=== PATIENT | female | born 1995 | race Caucasian/White ===

== ENCOUNTER 2017-04-01 19:49 | Emergency (ER) | payer BC, MEDICAID ==
--- OUTSIDE RECORDS SUMMARY | 2017-04-01 20:14 | XMS REPORT | Clinical Summary ---
:[address] [place] [address] Care Team Providers Name Role Phone Unavailable Primary Care Provider Unavailable Source Comments This disclosure is being made pursuant to the [employer] program and maynot contain all information available regarding this patient.[address] Allergies No Known Allergies Current Medications Be aware that medications may not be up to date as of this document. Alwaysverify current medications with the patient. No known medications Active Problems No known active problems Family History Medical History Relation Name Comments Diabetes Father Diabetes Mother Relation Name Status Comments Father Mother Social History Tobacco Use Types Packs/Day Years Used Date Never Smoker Smokeless Tobacco: Never Used Alcohol Use Drinks/Week oz/Week Comments No 0 Standard drinks or equivalent 0.0 Sex Assigned at Date Recorded Not on file Last Filed Vital Signs Vital Sign Reading Time Taken Blood Pressure 111/71 08/25/2015 9:55 AM [employer] Pulse 51 08/25/2015 9:55 AM [employer] Temperature - - Respiratory Rate - - Oxygen Saturation - - Inhaled Oxygen Concentration - - Weight 62 kg (136 lb 9.6 oz) 08/25/2015 9:55 AM [employer] Height 152.4 cm (5') 08/25/2015 9:55 AM [employer] Body Mass Index 26.68 08/25/2015 9:55 AM [employer]AFF Plan of Treatment Health Maintenance Due Date Last Done Comments HPV Vaccine ([id number],M: 9-22) (1 of 3 - Female 3 Dose 02/13/2008 Series) CHLAMYDIA SCREENING 2013 Meningococcal Vaccine (1 of 1) 2013 Tetanus/Pertussis (1 - Tdap) 02/13/2016 INFLUENZA IMMUNIZATION (#1) 2017 Results Not on filefrom Last 3 Months
[2017-04-01] MEDS ORDERED: MORPHINE SULFATE 2 MG/ML DISP.SYRIN IV ONE (20:28)
--- NOTE | 2017-04-01 20:36 | ERNOTE ---
Abdominal HPI - Narrative Date of Service: 04/01/17 - General Chief Complaint: Abdominal Pain Time Seen by Provider: 04/01/17 20:04 Source: patient Exam Limitations: no limitations - Immun/Allergies/Home Medications Immunizatons: IMMUNIZATION HX Immunizations Up to Date Yes History of Influenza Vaccine Yes Hx Pneumococcal Vaccination No Allergies/Adverse Reactions: Allergies No Known Allergies Allergy (Verified 02/24/15 18:58) Home Medications: HOME MEDICATIONS NK [No Home Medication] 04/01/17 [Last Taken Unknown] - History of Present Illness Narrative: This is a 22-year-old female who has last menstrual period of 2 weeks ago. She is sexually active. She comes to the emergency department with 5 days of suprapubic crampy sharp pain. The pain is intermittent. It will, in waves last for hours and then go away. Nothing definitely precipitates it. Nothing makes it better. The patient was deciding whether to go to the hospital or not earlier today but she felt okay. This evening she was at a store and felt the pain come back so she decided to come to the ER. She's had no fever she has had no blood in her urine no urinary frequency no diarrhea no constipation or nausea or vomiting she's never had surgery. No medical problems that she is aware of. Timing: intermittent Quality: severe, sharpness Activities at Onset: none Modifying Factors - (Improves): Present: other - nothing Associated Symptoms: Present: denies symptoms Prior Abdominal Problems: Present: none Review of Systems - Review of Systems Constitutional: Present: no symptoms reported EYE: Present: no symptoms reported ENT: Present: no symptoms reported Respiratory: Present: no symptoms reported Cardiology: Present: no symptoms reported Gastrointestinal/Abdominal: Present: abdominal pain. Absent: nausea, vomiting, diarrhea Genitourinary: Present: no symptoms reported Musculoskeletal: Present: no symptoms reported Skin: Present: no symptoms reported Neurological: Present: no symptoms reported Endocrine: Present: no symptoms reported Hematologic/Lymphatic: Present: no symptoms reported Psych: Present: no symptoms reported - Patient's Past Medical History Patient History - Medical: No pertinent hx Patient History - Cardiac/Respiratory: No pertinent hx Patient History - Cancer: No Hx of Cancer Patient History - Surgical Procedures: No surgical history Patient History - Other: None LMP (females 10-50): 1 month - Family History Father Family History - Medical: Diabetes Type 2 Family History - Cardiac/Respiratory: Hypertension - Social History Living Situations: home Abuse History: No History of abuse Psych History: No pertinent hx Smoking Status: Never smoker Alcohol Use: none Drug Use: none - Immunizations Immunizations Up to Date: Yes Hx Pneumococcal Vaccination: No History of Influenza Vaccine: Yes Physical Exam - Physical Exam General Appearance: Present: wd/wn, alert, no apparent distress Head Exam: Present: normal inspection, no evidence of injury Ears, Nose, Throat: Present: normal ENT inspection, normal pharynx Neck: Present: normal inspection, nontender Respiratory: Present: no respiratory distress, normal breath sounds, no accessory muscle use, chest nontender, lungs clear Cardiovascular/Chest: Present: regular rate, rhythm, no murmur, normal peripheral pulses Gastrointestinal/Abdominal: Present: normal bowel sounds, other - patient's abdomen is soft nondistended normal bowel sounds. She does have tenderness in bilateral lower quadrants. Positive Rovsing's sign negative Mir's sign palpation upper quadrants precipitates pain in the lower quadrants. No definite guarding. Exam is changing depending on the patient's talking with her friend. At one point she didn't seem to have any pain and then when she stopped talking she seemed to have more pain. Back Exam: Present: normal inspection Extremity Exam: Present: normal inspection Neurological Exam: Present: alert, oriented, normal mood/affect, no motor/ sensory deficits Skin Exam: Present: normal color, warm/dry Lymphatic Exam: Present: no adenopathy ED Progress - Results and Orders Patient's Lab Results:: I have reviewed the patient's lab results. - Vital Signs Patient's Vital Signs:: I have reviewed the patient's vital signs. Vital Signs: Vital Signs 04/01/17 19:55 Temperature 36.7 C Pulse Rate 81 Respiratory 14 Rate Blood Pressure 129/67 O2 Sat by Pulse 98 Oximetry - Progress/Reassessment Chief Complaint: Abdominal Pain Progress:: Improved Progress Note-Subjective: 04/01/17 21:41 I've made the patient aware that her labs are normal. Her symptoms actually have resolved nearly completely well she's been here. I made the patient aware that this does not completely exclude a possible serious etiology. We discussed symptoms for which she should return to the ER. If she is still having pain in 12-24 hours she will return. She is going to call an [employer] and set up a follow-up appointment. I suspect that this is a ruptured ovarian cyst. If she develops fever, vomiting, blood in her stool, blood in her urine, or any other complaints she will return Departure - Departure Clinical Impression: Abdominal pain Disposition: Home self-care Condition: Stable Instructions: Nausea, Adult Additional Instructions: As we discussed, the labs are normal here. There is no sign of an overwhelming infection. Your pain has gotten better. The fact that the pain has been going on for several days and that it comes and goes make me very reassured. One would expect a serious cause of abdominal pain to continue having symptoms that get worse. Regardless if you develop fever, bloody stool, bloody urine, any new or worrisome symptoms she should return to the ER immediately. She is still having significant symptoms in 24 hours she should return to the ER for further testing. Otherwise later call your family doctor and set up a follow-up appointment. I would suggest an [employer]. They can help with U yearly physicals as well.
[2017-04-01 20:48] LABS: Hematocrit 42.8 % (37.0-47.0); Hemoglobin 13.6 gm/dL (12.5-16.0); Mean Cell Volume 84.8 fl (78-100); Mean Corpuscular Hemoglobin 26.9 pg (27-31); Mean Corpuscular Hgb Conc 31.8 g/dl (32-36); Mean Platelet Volume 9.8 fl (6.0-9.5); Neutrophil # 6.3 K/mm3 (1.3-6.0); Neutrophil % 64.2 % (42-75.0); Platelet Count 354 K/mm3 (150-450); Red Blood Count 5.05 M/mm3 (4.2-5.4); Red Cell Distribution Width 13.1 % (11.5-14.0); White Blood Count 9.8 K/mm3 (4.0-10.5)
[2017-04-01 20:48] LABS: Urine Appearance Slightly Cloudy; Urine Bilirubin Negative (NEGATIVE); Urine Blood Negative /ul (NEGATIVE); Urine Color Yellow; Urine Ketone Negative (NEGATIVE); Urine Nitrite Negative (NEGATIVE); Urine Protein Negative (NEGATIVE); Urine Specific Gravity 1.025 SP.GR. (1.005-1.010); Urine Urobilinogen Normal (NORMAL)
[2017-04-01 20:55] LABS: Urine Bacteria None Seen; Urine RBC None Seen /hpf (0-5); Urine WBC 0-5 /hpf (0-5)
[2017-04-01 21:02] LABS: Albumin * 3.9 gm/dl (3.4-5.0); Anion Gap 11.2 mmol/L (6.8-13.8); BUN/Creatinine Ratio 21.2 (9.0-21.6); Bilirubin, Total 0.4 mg/dL (0.0-1.1); Ca. Corrected For Albumin 9.8 mg/dL (8.4-10.2); Carbon Dioxide 26.5 mmol/L (24-32.6); Potassium 3.7 mmol/L (3.4-4.6); Total Protein 8.6 gm/dL (6.2-8.2)
[2017-04-02 04:37] VITALS: BP 125/71
== END 2017-04-01 22:09 | disposition home or self-care (01) ==
LOC: ER 19:49
DX: R10.9 Unspecified abdominal pain (principal)